=== PATIENT | male | born 1950 | race Caucasian/White ===

== ENCOUNTER 2016-12-28 16:25 | Emergency (ER) | payer MEDICAID ==
[~2016-12-28] VITALS: Ht 172.7 cm; Wt 95.0 kg
[2016-12-28 19:20] LABS: BASOPHILS % 1.2 % (0.0-2.0); EOSINOPHILS % 0.8 % (0.0-5.0); HEMATOCRIT. 42.3 % (36.0-48.0); HEMOGLOBIN. 14.1 g/dL (12.0-16.0); MEAN CORPUSCULAR HEMOGLOBIN 30.9 pg (28.0-32.0); MEAN CORPUSCULAR VOLUME 92.8 fL (81.0-99.0); MEAN PLATELET VOLUME 9.8 fl (7.4-10.4); MONOCYTES % 7.4 % (2.0-8.0); NEUTROPHILS % 64.6 % (40.0-76.0); PLATELET 228 x1000/uL (130-400); RED BLOOD CELL COUNT 4.56 mill/uL (4.2-5.4)
[2016-12-28 19:28] LABS: PROTHROMBIN TIME 10.7 sec (9.4-11.6)
[2016-12-28 19:37] LABS: CARBON DIOXIDE 27 mEq/L (21-32); CHLORIDE 105 mEq/L (98-107); ETHANOL BLOOD < 10 mg/dL
[2016-12-28 20:20] LABS: CLARITY URINE CLOUDY (CLEAR); COLOR URINE DARK YELLOW (YELLOW); GLUCOSE URINE NEGATIVE (NEGATIVE); KETONES URINE TRACE (NEGATIVE); LEUKOCYTE ESTERASE URINE 2+ (NEGATIVE); NITRITE URINE NEGATIVE (NEGATIVE); OCCULT BLOOD URINE NEGATIVE (NEGATIVE); PROTEIN URINE 1+ (NEGATIVE); SPECIFIC GRAVITY URINE 1.033 (1.005-1.030)
[2016-12-28 20:35] LABS: *AMPHETAMINES SCREEN URINE PRESUMTIVE POSITIVE (NEGATIVE); *BARBITURATES SCREEN URINE NEGATIVE (NEGATIVE); *BENZODIAZEPINES SCREEN URINE NEGATIVE (NEGATIVE); *COCAINE SCREEN URINE NEGATIVE (NEGATIVE); CANNABINOID URINE SCREEN NEGATIVE (NEGATIVE); METHADONE URINE SCREEN NEGATIVE (NEGATIVE); OPIATES URINE SCREEN NEGATIVE (NEGATIVE); PHENCYCLIDINE URINE SCREEN NEGATIVE (NEGATIVE)
[2016-12-28] MEDS ORDERED: IBUPROFEN 600MG TABLET PO ONE (23:30)
[2016-12-28 23:53] VITALS: BP 160/99
== END 2016-12-28 23:30 | disposition home or self-care (01) ==
LOC: EDSEX 16:34 → ER 16:34
DX: B35.4 Tinea corporis (principal); F15.10 Other stimulant abuse, uncomplicated; N39.0 Urinary tract infection, site not specified; F17.200 Nicotine dependence, unspecified, uncomplicated
CPT/HCPCS: 36415; 80053; 80305; 81001; 83690; 85025; 85610; 93970; 99285; G0482

== ENCOUNTER 2016-12-29 03:23 | Emergency (ER) | payer MEDICAID ==
[~2016-12-29] VITALS: Ht 172.7 cm; Wt 75.0 kg
[2016-12-29] MEDS ORDERED: ONDANSETRON HCL 4MG/2ML VIAL IV STA (07:16)
[2016-12-29] MEDS ORDERED: SODIUM CHLORIDE 0.9% 1,000 ML IV ONE (07:16)
[2016-12-29 08:00] LABS: BASOPHILS % 0.7 % (0.0-2.0); EOSINOPHILS % 0.9 % (0.0-5.0); HEMATOCRIT. 37.4 % (42.0-52.0); HEMOGLOBIN. 12.5 g/dL (14.0-18.0); LYMPHOCYTES % 21.9 % (20.0-50.0); MEAN CORPUSCULAR HEMOGLOBIN 30.8 pg (28.0-32.0); MEAN PLATELET VOLUME 9.8 fl (7.4-10.4); NEUTROPHILS % 66.5 % (40.0-76.0); PLATELET 217 x1000/uL (130-400); RED BLOOD CELL COUNT 4.07 mill/uL (4.7-6.1); RED CELL DISTRIBUTION WIDTH 13.9 % (11.6-14.6)
[2016-12-29 08:05] LABS: CLARITY URINE CLOUDY (CLEAR); COLOR URINE DARK YELLOW (YELLOW); GLUCOSE URINE NEGATIVE (NEGATIVE); KETONES URINE TRACE (NEGATIVE); LEUKOCYTE ESTERASE URINE 3+ (NEGATIVE); NITRITE URINE NEGATIVE (NEGATIVE); OCCULT BLOOD URINE NEGATIVE (NEGATIVE); PH URINE 5.5 (4.5-8.0); PROTEIN URINE 1+ (NEGATIVE); SPECIFIC GRAVITY URINE 1.029 (1.005-1.030)
[2016-12-29 08:13] LABS: CARBON DIOXIDE 30 mEq/L (21-32); CHLORIDE 106 mEq/L (98-107); ETHANOL BLOOD < 10 mg/dL
[2016-12-29 08:36] LABS: *AMPHETAMINES SCREEN URINE PRESUMTIVE POSITIVE (NEGATIVE); *BARBITURATES SCREEN URINE NEGATIVE (NEGATIVE); *BENZODIAZEPINES SCREEN URINE NEGATIVE (NEGATIVE); *COCAINE SCREEN URINE NEGATIVE (NEGATIVE); CANNABINOID URINE SCREEN NEGATIVE (NEGATIVE); METHADONE URINE SCREEN NEGATIVE (NEGATIVE); OPIATES URINE SCREEN NEGATIVE (NEGATIVE); PHENCYCLIDINE URINE SCREEN NEGATIVE (NEGATIVE)
[2016-12-29] MEDS ORDERED: CEFTRIAXONE 1 G PREMIX 50 ML IV ONE (09:15)
[2016-12-29 10:27] VITALS: BP 130/82
== END 2016-12-29 10:29 | disposition home or self-care (01) ==
LOC: ER 07:34
DX: N39.0 Urinary tract infection, site not specified (principal); S80.812A Abrasion, left lower leg, initial encounter; S80.811A Abrasion, right lower leg, initial encounter; F15.10 Other stimulant abuse, uncomplicated; F17.200 Nicotine dependence, unspecified, uncomplicated; X58.XXXA Exposure to other specified factors, initial encounter; Y93.89 Activity, other specified; Y92.89 Other specified places as the place of occurrence of the external cause; Y99.8 Other external cause status
CPT/HCPCS: 36415; 80053; 80305; 81001; 83690; 85025; 96365; 96375; 99284; G0482; J0696; J2405; J7030; Z7610

== ENCOUNTER 2017-01-18 08:23 | Emergency (ER) | payer MEDICAID ==
[~2017-01-18] VITALS: Ht 172.7 cm; Wt 95.0 kg
[2017-01-18 09:29] LABS: BASOPHILS % 0.6 % (0.0-2.0); EOSINOPHILS % 0.2 % (0.0-5.0); HEMATOCRIT. 44.6 % (42.0-52.0); HEMOGLOBIN. 15.2 g/dL (14.0-18.0); LYMPHOCYTES % 14.8 % (20.0-50.0); MEAN CORPUSCULAR HEMOGLOBIN 30.9 pg (28.0-32.0); MEAN CORPUSCULAR VOLUME 90.7 fL (80.0-94.0); MEAN PLATELET VOLUME 9.7 fl (7.4-10.4); MONOCYTES % 8.6 % (2.0-8.0); NEUTROPHILS % 75.8 % (40.0-76.0); PLATELET 251 x1000/uL (130-400); RED BLOOD CELL COUNT 4.91 mill/uL (4.7-6.1); RED CELL DISTRIBUTION WIDTH 13.7 % (11.6-14.6)
[2017-01-18 09:41] LABS: PARTIAL THROMBOPLASTIN TIME 26.5 sec (23.4-31.0); PROTHROMBIN TIME 10.3 sec (9.4-11.6)
[2017-01-18 09:42] LABS: CARBON DIOXIDE 30 mEq/L (21-32); CHLORIDE 101 mEq/L (98-107); TROPONIN I 0.09 ng/mL (0.00-0.04)
[2017-01-18] MEDS ORDERED: POTASSIUM CHLORIDE 20MEQ TABLET SR PO ONE ×2 (10:00→10:14)
[2017-01-18 10:37] LABS: GLUCOSE URINE NEGATIVE (NEGATIVE); KETONES URINE NEGATIVE (NEGATIVE); LEUKOCYTE ESTERASE URINE TRACE (NEGATIVE); NITRITE URINE NEGATIVE (NEGATIVE); OCCULT BLOOD URINE TRACE (NEGATIVE); PH URINE 6.5 (4.5-8.0); PROTEIN URINE 1+ (NEGATIVE); SPECIFIC GRAVITY URINE 1.011 (1.005-1.030); UROBILINOGEN URINE 0.2 E.U./dL (0.2-1.0)
[2017-01-18 10:38] LABS: COLOR URINE YELLOW (YELLOW)
[2017-01-18 10:39] LABS: CLARITY URINE CLEAR (CLEAR)
[2017-01-18 12:27] VITALS: BP 170/116
[2017-01-18] MEDS ORDERED: LISINOPRIL 20MG TABLET PO ONE (12:45)
== END 2017-01-18 13:37 | disposition home or self-care (01) ==
LOC: ER 11:52
DX: N39.0 Urinary tract infection, site not specified (principal); I87.2 Venous insufficiency (chronic) (peripheral); F17.290 Nicotine dependence, other tobacco product, uncomplicated; I10 Essential (primary) hypertension
CPT/HCPCS: 36415; 71010; 80053; 81001; 83880; 84484; 85025; 85610; 85730; 87040; 87086; 93970; 99285; Z7610

== ENCOUNTER 2017-01-18 23:00 | Inpatient (IN) | payer MEDICAID ==
[~2017-01-18] VITALS: Ht 172.7 cm; Wt 93.4 kg
[2017-01-19] VITALS (7 sets, daily range): BP systolic 116–139; BP diastolic 65–118
[2017-01-19] MEDS ORDERED: ASPIRIN 81MG TABLET PO ONE (00:15)
[2017-01-19 00:57] LABS: BASOPHILS % 0.7 % (0.0-2.0); EOSINOPHILS % 0.6 % (0.0-5.0); HEMATOCRIT. 42.7 % (42.0-52.0); HEMOGLOBIN. 14.7 g/dL (14.0-18.0); LYMPHOCYTES % 23.1 % (20.0-50.0); MEAN CORPUSCULAR HEMOGLOBIN 31.5 pg (28.0-32.0); MEAN CORPUSCULAR VOLUME 91.2 fL (80.0-94.0); MEAN PLATELET VOLUME 9.5 fl (7.4-10.4); MONOCYTES % 9.5 % (2.0-8.0); NEUTROPHILS % 66.1 % (40.0-76.0); PLATELET 222 x1000/uL (130-400); RED BLOOD CELL COUNT 4.68 mill/uL (4.7-6.1); RED CELL DISTRIBUTION WIDTH 14.1 % (11.6-14.6)
[2017-01-19 00:59] LABS: PROTHROMBIN TIME 10.7 sec (9.4-11.6)
[2017-01-19 01:06] LABS: CARBON DIOXIDE 27 mEq/L (21-32); CHLORIDE 105 mEq/L (98-107); ETHANOL BLOOD < 10 mg/dL; TROPONIN I 0.07 ng/mL (0.00-0.04)
[2017-01-19 03:55] LABS: *AMPHETAMINES SCREEN URINE PRESUMTIVE POSITIVE (NEGATIVE); *BARBITURATES SCREEN URINE NEGATIVE (NEGATIVE); *BENZODIAZEPINES SCREEN URINE NEGATIVE (NEGATIVE); *COCAINE SCREEN URINE NEGATIVE (NEGATIVE); CANNABINOID URINE SCREEN NEGATIVE (NEGATIVE); METHADONE URINE SCREEN NEGATIVE (NEGATIVE); OPIATES URINE SCREEN NEGATIVE (NEGATIVE); PHENCYCLIDINE URINE SCREEN NEGATIVE (NEGATIVE)
[2017-01-19] MEDS ORDERED: ONDANSETRON HCL 4MG/2ML VIAL IV PRN (09:45)
[2017-01-19] MEDS ORDERED: DIPHENHYDRAMINE 50MG/ML VIAL IV PRN (09:45)
[2017-01-19] MEDS ORDERED: ACETAMINOPHEN 325MG TABLET PO PRN (09:45)
[2017-01-19] MEDS ORDERED: KETOROLAC 30MG/ML VIAL IV PRN (09:45)
[2017-01-19] MEDS ORDERED: IPRATROPIUM/ALBUTEROL 0.5-3(2.5)MG/3ML NEB INH PRN (09:45)
[2017-01-19] MEDS ORDERED: GUAIFENESIN 200MG/10ML SUGAR FREE UDC PO PRN (09:45)
[2017-01-19] MEDS ORDERED: NA PHOS,M-B/NA PHOS,DI-BA ENEMA 118ML PR PRN (09:45)
[2017-01-19] MEDS ORDERED: MAGNESIUM/ALUMINUM HYDROXIDE/SIMETHICONE 30ML UDC PO PRN (09:45)
[2017-01-19] MEDS ORDERED: CLONIDINE 0.1MG TABLET PO PRN (09:45)
[2017-01-19] MEDS ORDERED: DOCUSATE SODIUM 100MG CAPSULE PO PRN (09:45)
[2017-01-19] MEDS ORDERED: LORAZEPAM 2MG/ML CPJ IV PRN (09:45)
[2017-01-19] MEDS ORDERED: KETOROLAC 15MG/ML VIAL IV PRN (10:11)
[2017-01-19] MEDS: ENOXAPARIN 40MG/0.4ML SYR SUBCUT SCH ×2 (11:20→21:02)
[2017-01-19] MEDS ORDERED: POTASSIUM CHLORIDE 20MEQ TABLET SR PO SCH (13:15)
[2017-01-19 17:21] LABS: CREATINE KINASE MB FRACTION 9.7 ng/mL (0.5-3.6); TROPONIN I 0.05 ng/mL (0.00-0.04)
[2017-01-19] MEDS ORDERED: ZOLPIDEM TARTRATE 5MG TABLET PO PRN (21:00)
[2017-01-20 00:55] LABS: CREATINE KINASE MB FRACTION 6.8 ng/mL (0.5-3.6); TROPONIN I 0.04 ng/mL (0.00-0.04)
[2017-01-20 03:57] VITALS: BP 130/77
[2017-01-20 08:00] VITALS: BP 110/84
[2017-01-20] MEDS ORDERED: ASPIRIN 325MG EC TABLET PO SCH (09:00)
[2017-01-20] MEDS ORDERED: PANTOPRAZOLE SODIUM 40 MG/VIAL IV SCH (09:00)
[2017-01-20] MEDS: ENOXAPARIN 40MG/0.4ML SYR SUBCUT SCH (09:11)
[2017-01-20 12:00] VITALS: BP 118/86
[2017-01-20 12:50] VITALS: BP 118/86
[2017-01-20] MEDS ORDERED: ENOXAPARIN 30MG/0.3ML SYR SUBCUT SCH (21:00)
== END 2017-01-20 13:34 | disposition home or self-care (01) | DRG 812 ==
LOC: ER 23:00 → 5WST 01-19 04:32 → ENRESERV 01-19 05:04
PROVIDERS: ADMIT Internal Medicine; ATTEND Internal Medicine
DX: T43.621A Poisoning by amphetamines, accidental (unintentional), initial encounter (principal); E87.6 Hypokalemia; F17.210 Nicotine dependence, cigarettes, uncomplicated; I73.9 Peripheral vascular disease, unspecified; Y92.89 Other specified places as the place of occurrence of the external cause
CPT/HCPCS: 36415; 71010; 80053; 80061; 80305; 82550; 82553; 83036; 83690; 83880; 84484; 85025; 85610; 93005; 99285; C9113; G0482; J1650

== ENCOUNTER 2017-02-07 19:29 | Emergency (ER) | payer MEDICAID ==
[~2017-02-07] VITALS: Ht 172.7 cm; Wt 95.0 kg
[2017-02-07] MEDS ORDERED: ASPIRIN 81MG TABLET PO ONE (20:00)
[2017-02-07] MEDS: NITROGLYCERIN 0.4MG TABLET SL SL PRN ×2 (21:01→21:09)
[2017-02-07 21:07] LABS: BASOPHILS % 0.6 % (0.0-2.0); EOSINOPHILS % 1.4 % (0.0-5.0); HEMATOCRIT. 41.1 % (42.0-52.0); HEMOGLOBIN. 14.1 g/dL (14.0-18.0); LYMPHOCYTES % 26.1 % (20.0-50.0); MEAN CORPUSCULAR HEMOGLOBIN 31.3 pg (28.0-32.0); MEAN CORPUSCULAR VOLUME 91.1 fL (80.0-94.0); MEAN PLATELET VOLUME 9.8 fl (7.4-10.4); MONOCYTES % 7.8 % (2.0-8.0); NEUTROPHILS % 64.1 % (40.0-76.0); PLATELET 211 x1000/uL (130-400); RED BLOOD CELL COUNT 4.51 mill/uL (4.7-6.1); RED CELL DISTRIBUTION WIDTH 13.8 % (11.6-14.6)
[2017-02-07 21:12] LABS: CHLORIDE 107 mEq/L (98-107)
[2017-02-07 21:21] LABS: CARBON DIOXIDE 31 mEq/L (21-32); ETHANOL BLOOD < 10 mg/dL; TROPONIN I 0.03 ng/mL (0.00-0.04)
[2017-02-08 00:12] VITALS: BP 146/75
== END 2017-02-08 00:13 | disposition home or self-care (01) ==
LOC: ER 20:02
DX: R07.9 Chest pain, unspecified (principal); R06.02 Shortness of breath; I10 Essential (primary) hypertension; H54.61 Unqualified visual loss, right eye, normal vision left eye; F17.200 Nicotine dependence, unspecified, uncomplicated; F14.10 Cocaine abuse, uncomplicated
CPT/HCPCS: 36415; 71010; 80053; 83880; 84484; 85025; 85610; 93005; 99285; G0482; Z7610

== ENCOUNTER 2017-03-10 22:27 | Emergency (ER) | payer MEDICAID ==
[~2017-03-10] VITALS: Ht 172.7 cm; Wt 95.0 kg
[2017-03-11 04:42] LABS: BASOPHILS % 0.5 % (0.0-2.0); EOSINOPHILS % 0.4 % (0.0-5.0); HEMOGLOBIN. 14.1 g/dL (14.0-18.0); LYMPHOCYTES % 18.8 % (20.0-50.0); MEAN CORPUSCULAR HEMOGLOBIN 31.3 pg (28.0-32.0); MEAN PLATELET VOLUME 9.9 fl (7.4-10.4); MONOCYTES % 8.2 % (2.0-8.0); NEUTROPHILS % 72.1 % (40.0-76.0); PLATELET 235 x1000/uL (130-400); RED BLOOD CELL COUNT 4.51 mill/uL (4.7-6.1)
[2017-03-11 04:46] LABS: CARBON DIOXIDE 32 mEq/L (21-32); TROPONIN I < 0.02 ng/mL (0.00-0.04)
[2017-03-11 05:00] LABS: CHLORIDE 101 mEq/L (98-107)
[2017-03-11 06:58] VITALS: BP 180/98
== END 2017-03-11 06:59 | disposition home or self-care (01) ==
LOC: ER 22:27
DX: I10 Essential (primary) hypertension (principal); R42 Dizziness and giddiness; F17.210 Nicotine dependence, cigarettes, uncomplicated; F15.10 Other stimulant abuse, uncomplicated; F14.90 Cocaine use, unspecified, uncomplicated; H54.61 Unqualified visual loss, right eye, normal vision left eye
CPT/HCPCS: 36415; 71010; 80053; 84484; 85025; 93005; 99285; Z7610

== ENCOUNTER 2017-03-11 23:58 | Emergency (ER) | payer MEDICAID ==
[~2017-03-11] VITALS: Ht 172.7 cm; Wt 96.0 kg
[2017-03-12 00:12] VITALS: BP 141/99
== END 2017-03-12 02:15 | disposition left against medical advice (07) ==
LOC: ER 23:58
DX: R42 Dizziness and giddiness (principal); Z53.21 Procedure and treatment not carried out due to patient leaving prior to being seen by health care provider
CPT/HCPCS: 93005

== ENCOUNTER 2017-03-16 07:53 | Emergency (ER) | payer MEDICAID ==
[~2017-03-16] VITALS: Ht 175.3 cm; Wt 95.0 kg
[2017-03-16 08:54] LABS: BASOPHILS % 0.6 % (0.0-2.0); EOSINOPHILS % 0.3 % (0.0-5.0); HEMATOCRIT. 41.6 % (42.0-52.0); HEMOGLOBIN. 14.4 g/dL (14.0-18.0); LYMPHOCYTES % 14.1 % (20.0-50.0); MEAN CORPUSCULAR HEMOGLOBIN 31.4 pg (28.0-32.0); MEAN CORPUSCULAR VOLUME 90.7 fL (80.0-94.0); MEAN PLATELET VOLUME 9.6 fl (7.4-10.4); PLATELET 238 x1000/uL (130-400); RED BLOOD CELL COUNT 4.59 mill/uL (4.7-6.1); RED CELL DISTRIBUTION WIDTH 13.7 % (11.6-14.6)
[2017-03-16 08:57] LABS: PROTHROMBIN TIME 10.5 sec (9.4-11.6)
[2017-03-16 09:06] LABS: CARBON DIOXIDE 28 mEq/L (21-32); CHLORIDE 102 mEq/L (98-107); TROPONIN I 0.03 ng/mL (0.00-0.04)
[2017-03-16] MEDS ORDERED: NITROGLYCERIN 0.4MG TABLET SL SL PRN (09:15)
[2017-03-16 11:34] LABS: *AMPHETAMINES SCREEN URINE PRESUMTIVE POSITIVE (NEGATIVE); *BARBITURATES SCREEN URINE NEGATIVE (NEGATIVE); *BENZODIAZEPINES SCREEN URINE NEGATIVE (NEGATIVE); *COCAINE SCREEN URINE NEGATIVE (NEGATIVE); CANNABINOID URINE SCREEN NEGATIVE (NEGATIVE); METHADONE URINE SCREEN NEGATIVE (NEGATIVE); OPIATES URINE SCREEN NEGATIVE (NEGATIVE); PHENCYCLIDINE URINE SCREEN NEGATIVE (NEGATIVE)
[2017-03-16] MEDS ORDERED: POTASSIUM CHLORIDE 20MEQ TABLET SR PO ONE (12:45)
[2017-03-16] MEDS ORDERED: FUROSEMIDE 20MG/2ML VIAL IVP ONE (13:45)
[2017-03-16 15:09] VITALS: BP 184/128
== END 2017-03-16 15:13 | disposition home or self-care (01) ==
LOC: ER 09:59 → CANBEDREQ 15:51
DX: R07.2 Precordial pain (principal); F14.10 Cocaine abuse, uncomplicated; F15.10 Other stimulant abuse, uncomplicated; R60.0 Localized edema; E78.00 Pure hypercholesterolemia, unspecified; I10 Essential (primary) hypertension; F17.200 Nicotine dependence, unspecified, uncomplicated; Z98.890 Other specified postprocedural states
CPT/HCPCS: 36415; 71010; 80053; 80305; 83735; 83880; 84484; 85025; 85610; 93005; 96374; 99285; G0482; J1940

== ENCOUNTER 2017-03-17 22:50 | Emergency (ER) | payer MEDICAID ==
[~2017-03-17] VITALS: Ht 172.7 cm; Wt 95.0 kg
[2017-03-18] MEDS ORDERED: ACETAMINOPHEN 325MG TABLET PO STA (01:16)
[2017-03-18 01:43] LABS: BASOPHILS % 0.4 % (0.0-2.0); EOSINOPHILS % 0.6 % (0.0-5.0); HEMATOCRIT. 40.2 % (42.0-52.0); HEMOGLOBIN. 13.4 g/dL (14.0-18.0); LYMPHOCYTES % 16.5 % (20.0-50.0); MEAN CORPUSCULAR HEMOGLOBIN 30.4 pg (28.0-32.0); MEAN CORPUSCULAR VOLUME 91.3 fL (80.0-94.0); MEAN PLATELET VOLUME 9.5 fl (7.4-10.4); MONOCYTES % 8.6 % (2.0-8.0); NEUTROPHILS % 73.9 % (40.0-76.0); PLATELET 264 x1000/uL (130-400)
[2017-03-18 01:51] LABS: CHLORIDE 103 mEq/L (98-107)
[2017-03-18 02:02] LABS: CARBON DIOXIDE 30 mEq/L (21-32)
[2017-03-18 03:29] VITALS: BP 137/88
== END 2017-03-18 03:37 | disposition home or self-care (01) ==
LOC: ER 23:07
DX: R60.0 Localized edema (principal); L40.9 Psoriasis, unspecified; G89.29 Other chronic pain; I10 Essential (primary) hypertension; E78.00 Pure hypercholesterolemia, unspecified; F17.210 Nicotine dependence, cigarettes, uncomplicated; F14.10 Cocaine abuse, uncomplicated; Z90.49 Acquired absence of other specified parts of digestive tract; Z87.828 Personal history of other (healed) physical injury and trauma
CPT/HCPCS: 36415; 71010; 80053; 83880; 85025; 93005; 93970; 99285; Z7610

== ENCOUNTER 2017-03-24 11:24 | Emergency (ER) | payer MEDICAID ==
[~2017-03-24] VITALS: Ht 172.7 cm; Wt 98.0 kg
[2017-03-24 12:04] VITALS: BP 176/107
== END 2017-03-24 18:52 | disposition left against medical advice (07) ==
LOC: ER 11:59
DX: R07.89 Other chest pain (principal); Z53.21 Procedure and treatment not carried out due to patient leaving prior to being seen by health care provider

== ENCOUNTER 2017-03-27 14:44 | Emergency (ER) | payer MEDICAID ==
[~2017-03-27] VITALS: Ht 177.8 cm; Wt 95.0 kg
[2017-03-27 15:05] VITALS: BP 186/128
== END 2017-03-27 16:40 | disposition left against medical advice (07) ==
LOC: ER 14:44
DX: R42 Dizziness and giddiness (principal); Z53.21 Procedure and treatment not carried out due to patient leaving prior to being seen by health care provider

== ENCOUNTER 2017-03-29 22:01 | Emergency (ER) | payer MEDICAID ==
[~2017-03-29] VITALS: Ht 172.7 cm; Wt 101.0 kg
[2017-03-29] MEDS ORDERED: CLONIDINE 0.1MG TABLET PO ONE (23:45)
[2017-03-30 00:05] VITALS: BP 157/84
== END 2017-03-30 00:15 | disposition home or self-care (01) ==
LOC: ER 22:40
DX: I10 Essential (primary) hypertension (principal); F15.10 Other stimulant abuse, uncomplicated; F12.10 Cannabis abuse, uncomplicated; F14.10 Cocaine abuse, uncomplicated
CPT/HCPCS: 99282

== ENCOUNTER 2017-03-31 16:45 | Emergency (ER) | payer MEDICAID ==
[~2017-03-31] VITALS: Ht 172.7 cm; Wt 91.0 kg
[2017-03-31 18:56] LABS: BASOPHILS % 0.4 % (0.0-2.0); EOSINOPHILS % 0.5 % (0.0-5.0); HEMATOCRIT. 41.5 % (42.0-52.0); HEMOGLOBIN. 13.9 g/dL (14.0-18.0); MEAN CORPUSCULAR HEMOGLOBIN 30.8 pg (28.0-32.0); MEAN CORPUSCULAR VOLUME 91.8 fL (80.0-94.0); MEAN PLATELET VOLUME 9.9 fl (7.4-10.4); MONOCYTES % 7.4 % (2.0-8.0); NEUTROPHILS % 77.7 % (40.0-76.0); PLATELET 288 x1000/uL (130-400); RED BLOOD CELL COUNT 4.52 mill/uL (4.7-6.1); RED CELL DISTRIBUTION WIDTH 13.3 % (11.6-14.6)
[2017-03-31 19:05] LABS: PARTIAL THROMBOPLASTIN TIME 27.7 sec (23.4-31.0); PROTHROMBIN TIME 10.2 sec (9.4-11.6)
[2017-03-31 19:08] LABS: CARBON DIOXIDE 28 mEq/L (21-32); CHLORIDE 101 mEq/L (98-107)
[2017-03-31 19:13] LABS: TROPONIN I 0.03 ng/mL (0.00-0.04)
[2017-03-31 19:40] VITALS: BP 188/82
[2017-03-31] MEDS ORDERED: CLONIDINE 0.1MG TABLET ONE (21:36)
[2017-03-31] MEDS ORDERED: CLONIDINE 0.1MG TABLET PO ONE (22:30)
== END 2017-03-31 19:50 | disposition home or self-care (01) ==
LOC: ER 17:42
DX: R07.9 Chest pain, unspecified (principal); I11.0 Hypertensive heart disease with heart failure; I50.9 Heart failure, unspecified; F14.10 Cocaine abuse, uncomplicated; F12.10 Cannabis abuse, uncomplicated; F15.10 Other stimulant abuse, uncomplicated; Z90.49 Acquired absence of other specified parts of digestive tract
CPT/HCPCS: 36415; 80053; 83690; 84484; 85025; 85610; 85730; 93005; 99285

== ENCOUNTER 2017-04-01 07:48 | Emergency (ER) | payer MEDICAID ==
[~2017-04-01] VITALS: Ht 172.7 cm; Wt 100.0 kg
[2017-04-01] MEDS ORDERED: SODIUM CHLORIDE 0.9% 1,000 ML IV ONE (12:52)
[2017-04-01 13:11] LABS: EOSINOPHILS % 0.6 % (0.0-5.0); HEMATOCRIT. 41.1 % (42.0-52.0); HEMOGLOBIN. 13.8 g/dL (14.0-18.0); LYMPHOCYTES % 20.5 % (20.0-50.0); MEAN CORPUSCULAR HEMOGLOBIN 30.7 pg (28.0-32.0); MEAN CORPUSCULAR VOLUME 91.4 fL (80.0-94.0); MEAN PLATELET VOLUME 9.9 fl (7.4-10.4); MONOCYTES % 9.5 % (2.0-8.0); NEUTROPHILS % 68.4 % (40.0-76.0); PLATELET 269 x1000/uL (130-400); RED CELL DISTRIBUTION WIDTH 13.4 % (11.6-14.6)
[2017-04-01 13:32] LABS: CARBON DIOXIDE 28 mEq/L (21-32); CHLORIDE 101 mEq/L (98-107); ETHANOL BLOOD < 10 mg/dL
[2017-04-01 14:36] LABS: CLARITY URINE CLEAR (CLEAR); COLOR URINE YELLOW (YELLOW); KETONES URINE 1+ (NEGATIVE); LEUKOCYTE ESTERASE URINE TRACE (NEGATIVE); NITRITE URINE NEGATIVE (NEGATIVE); OCCULT BLOOD URINE NEGATIVE (NEGATIVE); PH URINE 5.5 (4.5-8.0); PROTEIN URINE NEGATIVE (NEGATIVE); SPECIFIC GRAVITY URINE 1.014 (1.005-1.030)
[2017-04-01 15:15] LABS: *AMPHETAMINES SCREEN URINE PRESUMTIVE POSITIVE (NEGATIVE); *BARBITURATES SCREEN URINE NEGATIVE (NEGATIVE); *BENZODIAZEPINES SCREEN URINE NEGATIVE (NEGATIVE); *COCAINE SCREEN URINE NEGATIVE (NEGATIVE); CANNABINOID URINE SCREEN NEGATIVE (NEGATIVE); METHADONE URINE SCREEN NEGATIVE (NEGATIVE); OPIATES URINE SCREEN NEGATIVE (NEGATIVE); PHENCYCLIDINE URINE SCREEN NEGATIVE (NEGATIVE)
[2017-04-01 16:05] VITALS: BP 181/89
== END 2017-04-01 16:15 | disposition home or self-care (01) ==
LOC: ER 08:29
DX: F15.10 Other stimulant abuse, uncomplicated (principal); F17.210 Nicotine dependence, cigarettes, uncomplicated; F12.10 Cannabis abuse, uncomplicated; I10 Essential (primary) hypertension; Z90.49 Acquired absence of other specified parts of digestive tract; Z98.890 Other specified postprocedural states
CPT/HCPCS: 36415; 80053; 80305; 81001; 85025; 96360; 96361; 99285; G0482; J7030; Z7610

== ENCOUNTER 2017-04-04 21:53 | Emergency (ER) | payer MEDICAID ==
[~2017-04-04] VITALS: Ht 172.7 cm; Wt 90.9 kg
[2017-04-05] MEDS ORDERED: ACETAMINOPHEN 325MG TABLET PO ONE (06:30)
[2017-04-05] MEDS ORDERED: CLONIDINE 0.2MG TABLET PO ONE (06:30)
[2017-04-05] MEDS ORDERED: TRAMADOL 50MG TABLET PO ONE (08:00)
[2017-04-05 09:24] VITALS: BP 134/97
== END 2017-04-05 09:28 | disposition home or self-care (01) ==
LOC: ER 22:46
DX: S80.211A Abrasion, right knee, initial encounter (principal); I10 Essential (primary) hypertension; M79.641 Pain in right hand; F17.200 Nicotine dependence, unspecified, uncomplicated; F14.10 Cocaine abuse, uncomplicated; F15.10 Other stimulant abuse, uncomplicated; Z98.890 Other specified postprocedural states; W08.XXXA Fall from other furniture, initial encounter; Y93.89 Activity, other specified; Y92.89 Other specified places as the place of occurrence of the external cause; Y99.8 Other external cause status
CPT/HCPCS: 73130; 73562; 99284; Z7610

== ENCOUNTER 2017-04-06 03:32 | Emergency (ER) | payer MEDICAID ==
[~2017-04-06] VITALS: Ht 172.7 cm; Wt 91.0 kg
[2017-04-06 03:38] VITALS: BP 160/102
== END 2017-04-06 06:41 | disposition left against medical advice (07) ==
LOC: ER 03:32
DX: M79.642 Pain in left hand (principal); M79.89 Other specified soft tissue disorders; Z53.21 Procedure and treatment not carried out due to patient leaving prior to being seen by health care provider

== ENCOUNTER 2017-04-07 02:17 | Emergency (ER) | payer MEDICAID ==
[~2017-04-07] VITALS: Ht 172.7 cm; Wt 91.0 kg
[2017-04-07 02:42] VITALS: BP 221/110
== END 2017-04-07 08:14 | disposition left against medical advice (07) ==
LOC: ER 02:17
DX: M79.89 Other specified soft tissue disorders (principal); Z53.21 Procedure and treatment not carried out due to patient leaving prior to being seen by health care provider

== ENCOUNTER 2017-04-07 14:49 | Emergency (ER) | payer MEDICAID ==
[~2017-04-07] VITALS: Ht 172.7 cm; Wt 91.0 kg
[2017-04-07] MEDS ORDERED: IBUPROFEN 600MG TABLET PO ONE (17:15)
[2017-04-07 18:23] VITALS: BP 162/97
== END 2017-04-07 18:26 | disposition home or self-care (01) ==
LOC: ER 14:49
DX: B35.3 Tinea pedis (principal); B35.1 Tinea unguium; M79.672 Pain in left foot; M79.642 Pain in left hand; M79.671 Pain in right foot; E78.00 Pure hypercholesterolemia, unspecified; I10 Essential (primary) hypertension
CPT/HCPCS: 73130; 73630; 99284

== ENCOUNTER 2017-04-08 21:08 | Emergency (ER) | payer MEDICAID ==
[~2017-04-08] VITALS: Ht 172.7 cm; Wt 91.0 kg
[2017-04-09] MEDS ORDERED: ASPIRIN 325MG TABLET PO ONE
[2017-04-09] MEDS ORDERED: LOSARTAN POTASSIUM 25 MG TABLET PO ONE (00:15)
[2017-04-09] MEDS ORDERED: CLONIDINE 0.1MG TABLET PO ONE (00:15)
[2017-04-09] MEDS ORDERED: FUROSEMIDE 40MG TABLET PO ONE (00:15)
[2017-04-09 00:34] LABS: BASOPHILS % 0.6 % (0.0-2.0); EOSINOPHILS % 1.2 % (0.0-5.0); HEMATOCRIT. 39.9 % (42.0-52.0); HEMOGLOBIN. 13.2 g/dL (14.0-18.0); LYMPHOCYTES % 18.3 % (20.0-50.0); MEAN CORPUSCULAR HEMOGLOBIN 30.7 pg (28.0-32.0); MEAN CORPUSCULAR VOLUME 92.6 fL (80.0-94.0); MEAN PLATELET VOLUME 9.5 fl (7.4-10.4); MONOCYTES % 8.8 % (2.0-8.0); NEUTROPHILS % 71.1 % (40.0-76.0); PLATELET 291 x1000/uL (130-400); RED BLOOD CELL COUNT 4.31 mill/uL (4.7-6.1); RED CELL DISTRIBUTION WIDTH 13.6 % (11.6-14.6)
[2017-04-09 00:42] LABS: PARTIAL THROMBOPLASTIN TIME 27.9 sec (23.4-31.0); PROTHROMBIN TIME 10.3 sec (9.4-11.6)
[2017-04-09 01:22] LABS: CARBON DIOXIDE 29 mEq/L (21-32); CHLORIDE 105 mEq/L (98-107)
[2017-04-09 01:29] LABS: TROPONIN I 0.03 ng/mL (0.00-0.04)
[2017-04-09 04:13] VITALS: BP 165/89
== END 2017-04-09 04:15 | disposition home or self-care (01) ==
LOC: ER 21:08
DX: R07.89 Other chest pain (principal); R06.02 Shortness of breath; I10 Essential (primary) hypertension; E78.00 Pure hypercholesterolemia, unspecified; Z91.14 Patient's other noncompliance with medication regimen
CPT/HCPCS: 36415; 71045; 80053; 83690; 84484; 85025; 85610; 85730; 93005; 99285

== ENCOUNTER 2017-04-09 21:07 | Emergency (ER) | payer MEDICAID ==
[~2017-04-09] VITALS: Ht 172.7 cm; Wt 90.9 kg
[2017-04-09 22:00] VITALS: BP 153/98
== END 2017-04-10 06:45 | disposition left against medical advice (07) ==
LOC: ER 21:07
DX: R11.0 Nausea (principal); Z53.21 Procedure and treatment not carried out due to patient leaving prior to being seen by health care provider

== ENCOUNTER 2017-04-13 00:07 | Emergency (ER) | payer MEDICAID ==
[~2017-04-13] VITALS: Ht 172.7 cm; Wt 91.0 kg
[2017-04-13 00:42] VITALS: BP 156/101
== END 2017-04-13 09:32 | disposition left against medical advice (07) ==
LOC: ER 00:07
DX: M79.643 Pain in unspecified hand (principal); Z53.21 Procedure and treatment not carried out due to patient leaving prior to being seen by health care provider

== ENCOUNTER 2017-04-14 00:23 | Emergency (ER) | payer MEDICAID ==
[~2017-04-14] VITALS: Ht 172.7 cm; Wt 91.0 kg
[2017-04-14 03:29] VITALS: BP 149/99
== END 2017-04-14 07:19 | disposition home or self-care (01) ==
LOC: ER 00:23
DX: L03.114 Cellulitis of left upper limb (principal); I10 Essential (primary) hypertension; F17.200 Nicotine dependence, unspecified, uncomplicated
CPT/HCPCS: 99283

== ENCOUNTER 2017-04-14 23:36 | Emergency (ER) | payer MEDICAID ==
[~2017-04-14] VITALS: Ht 172.7 cm; Wt 91.0 kg
[2017-04-15 01:07] VITALS: BP 184/101
== END 2017-04-15 08:21 | disposition left against medical advice (07) ==
LOC: ER 23:36
DX: Z53.21 Procedure and treatment not carried out due to patient leaving prior to being seen by health care provider (principal)

== ENCOUNTER 2017-04-15 21:37 | Emergency (ER) | payer MEDICAID ==
[~2017-04-15] VITALS: Ht 172.7 cm; Wt 91.0 kg
[2017-04-15 22:43] VITALS: BP 149/108
[2017-04-16] MEDS ORDERED: IBUPROFEN 600MG TABLET PO ONE (00:30)
== END 2017-04-16 00:40 | disposition home or self-care (01) ==
LOC: ER 22:27
DX: M79.89 Other specified soft tissue disorders (principal); J44.9 Chronic obstructive pulmonary disease, unspecified; I10 Essential (primary) hypertension; F17.200 Nicotine dependence, unspecified, uncomplicated; F14.10 Cocaine abuse, uncomplicated; F15.10 Other stimulant abuse, uncomplicated; Z87.828 Personal history of other (healed) physical injury and trauma
CPT/HCPCS: 99282

== ENCOUNTER 2017-04-17 21:32 | Emergency (ER) | payer MEDICAID ==
[~2017-04-17] VITALS: Ht 172.7 cm; Wt 91.0 kg
[2017-04-18] MEDS ORDERED: FUROSEMIDE 40MG/4ML VIAL IV ONE (03:00)
[2017-04-18 03:15] LABS: BASOPHILS % 0.6 % (0.0-2.0); EOSINOPHILS % 1.4 % (0.0-5.0); HEMATOCRIT. 39.4 % (42.0-52.0); HEMOGLOBIN. 13.4 g/dL (14.0-18.0); LYMPHOCYTES % 21.1 % (20.0-50.0); MEAN CORPUSCULAR HEMOGLOBIN 31.2 pg (28.0-32.0); MEAN PLATELET VOLUME 9.7 fl (7.4-10.4); MONOCYTES % 8.8 % (2.0-8.0); NEUTROPHILS % 68.1 % (40.0-76.0); PLATELET 239 x1000/uL (130-400); RED BLOOD CELL COUNT 4.28 mill/uL (4.7-6.1); RED CELL DISTRIBUTION WIDTH 13.9 % (11.6-14.6)
[2017-04-18 03:49] LABS: TROPONIN I 0.03 ng/mL (0.00-0.04)
[2017-04-18 04:53] LABS: CHLORIDE 103 mEq/L (98-107)
[2017-04-18] MEDS ORDERED: POTASSIUM CHLORIDE 20MEQ TABLET SR PO ONE (05:00)
[2017-04-18] MEDS ORDERED: FUROSEMIDE 40MG TABLET PO ONE (05:00)
[2017-04-18 06:30] VITALS: BP 184/92
[2017-05-12] MEDS ORDERED: FURO40TA5 PO (16:36)
== END 2017-04-18 06:41 | disposition home or self-care (01) ==
LOC: ER 22:38
DX: I87.2 Venous insufficiency (chronic) (peripheral) (principal); I50.9 Heart failure, unspecified; I11.0 Hypertensive heart disease with heart failure; M79.89 Other specified soft tissue disorders; J44.9 Chronic obstructive pulmonary disease, unspecified; F14.10 Cocaine abuse, uncomplicated; F15.10 Other stimulant abuse, uncomplicated; Z87.440 Personal history of urinary (tract) infections; Z98.890 Other specified postprocedural states
CPT/HCPCS: 36415; 71045; 73130; 80053; 83880; 84484; 85025; 93005; 99285; Z7610

== ENCOUNTER 2017-04-19 23:55 | Emergency (ER) | payer MEDICAID ==
[~2017-04-19] VITALS: Ht 172.7 cm; Wt 91.0 kg
[2017-04-20 00:41] VITALS: BP 144/104
== END 2017-04-20 07:26 | disposition left against medical advice (07) ==
LOC: ER 23:55
DX: Z53.21 Procedure and treatment not carried out due to patient leaving prior to being seen by health care provider (principal)

== ENCOUNTER 2017-04-20 23:25 | Emergency (ER) | payer MEDICAID ==
[~2017-04-20] VITALS: Ht 172.7 cm; Wt 91.0 kg
[2017-04-21] MEDS ORDERED: FUROSEMIDE 40MG/4ML VIAL IV ONE (03:30)
[2017-04-21] MEDS ORDERED: LABETALOL HCL 20MG/4ML CARPUJECT IV ONE (03:30)
[2017-04-21] MEDS ORDERED: NITROGLYCERIN OINT 1GM/INCH UDPKT TD ONE (03:30)
[2017-04-21] MEDS ORDERED: ASPIRIN 81MG TABLET PO ONE (03:30)
[2017-04-21] MEDS ORDERED: LABETALOL 5MG/ML SYR 20 MG/4 ML SYRINGE IV SCH (03:45)
[2017-04-21 04:04] LABS: BASOPHILS % 0.9 % (0.0-2.0); EOSINOPHILS % 0.9 % (0.0-5.0); HEMATOCRIT. 39.5 % (42.0-52.0); HEMOGLOBIN. 13.1 g/dL (14.0-18.0); LYMPHOCYTES % 26.7 % (20.0-50.0); MEAN CORPUSCULAR HEMOGLOBIN 30.5 pg (28.0-32.0); MEAN CORPUSCULAR VOLUME 91.6 fL (80.0-94.0); MEAN PLATELET VOLUME 9.7 fl (7.4-10.4); MONOCYTES % 9.9 % (2.0-8.0); NEUTROPHILS % 61.6 % (40.0-76.0); PLATELET 242 x1000/uL (130-400); RED BLOOD CELL COUNT 4.31 mill/uL (4.7-6.1); RED CELL DISTRIBUTION WIDTH 13.8 % (11.6-14.6)
[2017-04-21 04:09] LABS: PROTHROMBIN TIME 10.7 sec (9.4-11.6)
[2017-04-21 04:12] LABS: CHLORIDE 104 mEq/L (98-107); ETHANOL BLOOD < 10 mg/dL; TROPONIN I 0.03 ng/mL (0.00-0.04)
[2017-04-21 04:48] LABS: CARBON DIOXIDE 29 mEq/L (21-32)
[2017-04-21 06:15] VITALS: BP 125/67
== END 2017-04-21 06:17 | disposition home or self-care (01) ==
LOC: ER 23:25 → EDBEDREQ 04-21 03:34 → ER 04-21 06:17 → CANBEDREQ 04-21 07:42
DX: M79.605 Pain in left leg (principal); M79.604 Pain in right leg; I11.0 Hypertensive heart disease with heart failure; I50.9 Heart failure, unspecified; F17.200 Nicotine dependence, unspecified, uncomplicated; F14.10 Cocaine abuse, uncomplicated; Z79.82 Long term (current) use of aspirin; Z91.14 Patient's other noncompliance with medication regimen; Z98.890 Other specified postprocedural states
CPT/HCPCS: 36415; 71045; 80053; 83880; 84484; 85025; 85610; 93005; 96374; 96375; 99285; G0482; J1940; J3490; Z7610

== ENCOUNTER 2017-04-25 22:57 | Emergency (ER) | payer MEDICAID ==
[~2017-04-25] VITALS: Ht 172.7 cm; Wt 91.0 kg
[2017-04-26 05:00] VITALS: BP 149/89
[2017-05-12] MEDS ORDERED: FURO40TA5 PO (16:36)
[2017-06-20] MEDS ORDERED: CLIN300C11 PO (14:35)
== END 2017-04-26 04:30 | disposition home or self-care (01) ==
LOC: ER 22:57
DX: R60.0 Localized edema (principal); I10 Essential (primary) hypertension; F17.200 Nicotine dependence, unspecified, uncomplicated; F14.10 Cocaine abuse, uncomplicated; Z98.890 Other specified postprocedural states
CPT/HCPCS: 99283

== ENCOUNTER 2017-04-27 03:21 | Emergency (ER) | payer MEDICAID ==
[~2017-04-27] VITALS: Ht 172.7 cm; Wt 91.0 kg
[2017-04-27 03:30] VITALS: BP 170/88
== END 2017-04-27 03:53 | disposition left against medical advice (07) ==
LOC: ER 03:27
DX: Z53.21 Procedure and treatment not carried out due to patient leaving prior to being seen by health care provider (principal)

== ENCOUNTER 2017-04-30 00:32 | Emergency (ER) | payer MEDICAID ==
[~2017-04-30] VITALS: Ht 172.7 cm; Wt 91.0 kg
[2017-04-30] MEDS ORDERED: FUROSEMIDE 40MG/4ML VIAL IVP ONE (01:00)
[2017-04-30] MEDS ORDERED: CLONIDINE 0.1MG TABLET PO ONE (01:00)
[2017-04-30 02:49] VITALS: BP 179/101
[2017-05-12] MEDS ORDERED: FURO40TA5 PO (16:36)
[2017-06-20] MEDS ORDERED: CLIN300C11 PO (14:35)
== END 2017-04-30 03:06 | disposition home or self-care (01) ==
LOC: ER 00:32
DX: S63.91XA Sprain of unspecified part of right wrist and hand, initial encounter (principal); I10 Essential (primary) hypertension; F17.200 Nicotine dependence, unspecified, uncomplicated; F12.10 Cannabis abuse, uncomplicated; F15.10 Other stimulant abuse, uncomplicated; Z91.14 Patient's other noncompliance with medication regimen; Z87.828 Personal history of other (healed) physical injury and trauma; Y04.0XXA Assault by unarmed brawl or fight, initial encounter; Y93.89 Activity, other specified; Y92.89 Other specified places as the place of occurrence of the external cause; Z59.0 Homelessness
CPT/HCPCS: 73130; 96374; 99284; J1940; Z7610

== ENCOUNTER 2017-05-04 01:28 | Emergency (ER) | payer MEDICAID ==
[~2017-05-04] VITALS: Ht 170.2 cm; Wt 77.0 kg
[2017-05-04 02:04] VITALS: BP 180/88
== END 2017-05-04 04:00 | disposition left against medical advice (07) ==
LOC: ER 01:28
DX: M25.511 Pain in right shoulder (principal); M25.512 Pain in left shoulder; Z53.21 Procedure and treatment not carried out due to patient leaving prior to being seen by health care provider

== ENCOUNTER 2017-05-04 15:34 | Emergency (ER) | payer MEDICAID ==
[~2017-05-04] VITALS: Ht 172.7 cm; Wt 75.0 kg
[2017-05-04] MEDS ORDERED: KETOROLAC 30MG/ML VIAL IM ONE (23:00)
[2017-05-04] MEDS ORDERED: ONDANSETRON 4MG ODT PO ONE (23:00)
[2017-05-04 23:45] VITALS: BP 122/68
[2017-05-12] MEDS ORDERED: FURO40TA5 PO (16:36)
[2017-06-20] MEDS ORDERED: CLIN300C11 PO (14:35)
== END 2017-05-05 00:05 | disposition home or self-care (01) ==
LOC: ER 16:20
DX: S46.911A Strain of unspecified muscle, fascia and tendon at shoulder and upper arm level, right arm, initial encounter (principal); S46.912A Strain of unspecified muscle, fascia and tendon at shoulder and upper arm level, left arm, initial encounter; I11.0 Hypertensive heart disease with heart failure; I50.9 Heart failure, unspecified; F15.10 Other stimulant abuse, uncomplicated; F17.200 Nicotine dependence, unspecified, uncomplicated; F12.10 Cannabis abuse, uncomplicated; X58.XXXA Exposure to other specified factors, initial encounter; Y93.B9 Activity, other involving muscle strengthening exercises; Y92.89 Other specified places as the place of occurrence of the external cause; Z59.0 Homelessness
CPT/HCPCS: 96372; 99283; J1885; Q0162

== ENCOUNTER 2017-05-05 07:22 | Emergency (ER) | payer MEDICAID ==
[~2017-05-05] VITALS: Ht 172.7 cm; Wt 91.0 kg
[2017-05-05 10:54] VITALS: BP 180/99
[2017-05-12] MEDS ORDERED: FURO40TA5 PO (16:36)
[2017-06-20] MEDS ORDERED: CLIN300C11 PO (14:35)
== END 2017-05-05 11:00 | disposition left against medical advice (07) ==
LOC: ER 07:31
DX: Z53.21 Procedure and treatment not carried out due to patient leaving prior to being seen by health care provider (principal); Z59.0 Homelessness

== ENCOUNTER 2017-05-06 01:32 | Emergency (ER) | payer MEDICAID ==
[~2017-05-06] VITALS: Ht 172.7 cm; Wt 92.1 kg
[2017-05-06 01:36] VITALS: BP 179/101
[2017-05-12] MEDS ORDERED: FURO40TA5 PO (16:36)
[2017-06-20] MEDS ORDERED: CLIN300C11 PO (14:35)
== END 2017-05-06 06:00 | disposition left against medical advice (07) ==
LOC: ER 01:32
DX: Z53.21 Procedure and treatment not carried out due to patient leaving prior to being seen by health care provider (principal); Z59.0 Homelessness

== ENCOUNTER 2017-05-07 01:27 | Emergency (ER) | payer MEDICAID ==
[2017-05-12] MEDS ORDERED: FURO40TA5 PO (16:36)
== END 2017-05-07 02:25 | disposition left against medical advice (07) ==
LOC: ER 01:27
DX: Z53.21 Procedure and treatment not carried out due to patient leaving prior to being seen by health care provider (principal)

== ENCOUNTER 2017-05-10 00:19 | Emergency (ER) | payer MEDICAID ==
[~2017-05-10] VITALS: Ht 172.7 cm; Wt 91.0 kg
[2017-05-10 01:48] VITALS: BP 194/104
[2017-05-12] MEDS ORDERED: FURO40TA5 PO (16:36)
== END 2017-05-10 06:05 | disposition left against medical advice (07) ==
LOC: ER 02:33
DX: R11.0 Nausea (principal); R10.9 Unspecified abdominal pain; Z53.21 Procedure and treatment not carried out due to patient leaving prior to being seen by health care provider

== ENCOUNTER 2017-05-11 00:33 | Emergency (ER) | payer MEDICAID ==
[~2017-05-11] VITALS: Ht 172.7 cm; Wt 91.0 kg
[2017-05-11 00:59] VITALS: BP 156/108
[2017-05-12] MEDS ORDERED: FURO40TA5 PO (16:36)
== END 2017-05-11 08:18 | disposition left against medical advice (07) ==
LOC: ER 00:33
DX: R11.0 Nausea (principal); R10.9 Unspecified abdominal pain; Z53.21 Procedure and treatment not carried out due to patient leaving prior to being seen by health care provider

== ENCOUNTER 2017-05-14 21:10 | Emergency (ER) | payer MEDICAID ==
[~2017-05-14 21:10] MED LIST: FURO40TA5 PO
[2017-05-15] MEDS ORDERED: CLONIDINE 0.1MG TABLET PO ONE (00:15)
[2017-05-15 03:15] VITALS: BP 155/113
== END 2017-05-15 03:29 | disposition home or self-care (01) ==
LOC: ER 21:10
DX: Z76.0 Encounter for issue of repeat prescription (principal); I11.0 Hypertensive heart disease with heart failure; I50.9 Heart failure, unspecified; F17.200 Nicotine dependence, unspecified, uncomplicated; F14.10 Cocaine abuse, uncomplicated; F15.10 Other stimulant abuse, uncomplicated
CPT/HCPCS: 99283; Z7610

== ENCOUNTER 2017-05-16 01:02 | Emergency (ER) | payer MEDICAID ==
[~2017-05-16] VITALS: Ht 172.7 cm; Wt 91.0 kg
[2017-05-16 01:13] VITALS: BP 163/100
== END 2017-05-16 04:40 | disposition left against medical advice (07) ==
LOC: ER 01:02
DX: Z53.21 Procedure and treatment not carried out due to patient leaving prior to being seen by health care provider (principal)

== ENCOUNTER 2017-05-19 02:31 | Emergency (ER) | payer MEDICAID ==
[~2017-05-19] VITALS: Ht 172.7 cm; Wt 91.0 kg
[2017-05-19 03:07] VITALS: BP 171/105
[2017-06-20] MEDS ORDERED: CLIN300C11 PO (14:35)
== END 2017-05-19 08:16 | disposition left against medical advice (07) ==
LOC: ER 02:31
DX: Z53.21 Procedure and treatment not carried out due to patient leaving prior to being seen by health care provider (principal)

== ENCOUNTER 2017-05-21 00:14 | Emergency (ER) | payer MEDICAID ==
[~2017-05-21] VITALS: Ht 172.7 cm; Wt 90.9 kg
[2017-05-21 00:28] VITALS: BP 183/103
[2017-05-21] MEDS ORDERED: IBUPROFEN 800MG TABLET PO ONE (01:00)
[2017-05-21] MEDS ORDERED: KETOROLAC 60MG/2ML VIAL IM ONE (01:15)
[2017-06-20] MEDS ORDERED: CLIN300C11 PO (14:35)
== END 2017-05-21 01:47 | disposition home or self-care (01) ==
LOC: ER 00:14
DX: G89.29 Other chronic pain (principal); M25.512 Pain in left shoulder; M25.511 Pain in right shoulder; I10 Essential (primary) hypertension; F17.200 Nicotine dependence, unspecified, uncomplicated; Z59.0 Homelessness
CPT/HCPCS: 96372; 99283; J1885

== ENCOUNTER 2017-05-22 00:42 | Emergency (ER) | payer MEDICAID ==
[~2017-05-22] VITALS: Ht 172.7 cm; Wt 91.0 kg
[2017-05-22 00:58] VITALS: BP 177/88
[2017-05-22] MEDS ORDERED: ACETAMINOPHEN 325MG TABLET PO STA (04:07)
[2017-05-22 04:34] LABS: BASOPHILS % 0.6 % (0.0-2.0); EOSINOPHILS % 0.9 % (0.0-5.0); HEMOGLOBIN. 13.7 g/dL (14.0-18.0); LYMPHOCYTES % 19.5 % (20.0-50.0); MEAN CORPUSCULAR HEMOGLOBIN 31.4 pg (28.0-32.0); MEAN PLATELET VOLUME 9.8 fl (7.4-10.4); MONOCYTES % 8.8 % (2.0-8.0); NEUTROPHILS % 70.2 % (40.0-76.0); PLATELET 264 x1000/uL (130-400); RED BLOOD CELL COUNT 4.35 mill/uL (4.7-6.1); RED CELL DISTRIBUTION WIDTH 13.6 % (11.6-14.6)
[2017-05-22 04:45] LABS: CHLORIDE 105 mEq/L (98-107)
[2017-05-22 04:56] LABS: CLARITY URINE CLEAR (CLEAR); COLOR URINE YELLOW (YELLOW); KETONES URINE NEGATIVE (NEGATIVE); LEUKOCYTE ESTERASE URINE 1+ (NEGATIVE); NITRITE URINE NEGATIVE (NEGATIVE); OCCULT BLOOD URINE NEGATIVE (NEGATIVE); PH URINE 7.5 (4.5-8.0); PROTEIN URINE NEGATIVE (NEGATIVE); SPECIFIC GRAVITY URINE 1.012 (1.005-1.030); UROBILINOGEN URINE 0.2 E.U./dL (0.2-1.0)
== END 2017-05-22 05:46 | disposition home or self-care (01) ==
LOC: ER 00:42
DX: N39.0 Urinary tract infection, site not specified (principal); R11.0 Nausea; I10 Essential (primary) hypertension; F17.200 Nicotine dependence, unspecified, uncomplicated; F14.10 Cocaine abuse, uncomplicated; Z98.890 Other specified postprocedural states
CPT/HCPCS: 36415; 80053; 81003; 83690; 85025; 99284

== ENCOUNTER 2017-05-23 22:34 | Emergency (ER) | payer MEDICAID ==
[~2017-05-23] VITALS: Ht 172.7 cm; Wt 91.0 kg
[2017-05-23 23:53] VITALS: BP 173/65
[2017-05-24] MEDS ORDERED: ONDANSETRON 4MG ODT PO ONE (00:15)
[2017-06-20] MEDS ORDERED: CLIN300C11 PO (14:35)
== END 2017-05-24 00:41 | disposition home or self-care (01) ==
LOC: ER 22:34
DX: R11.0 Nausea (principal); I10 Essential (primary) hypertension; F14.10 Cocaine abuse, uncomplicated; F17.200 Nicotine dependence, unspecified, uncomplicated; Z90.49 Acquired absence of other specified parts of digestive tract; Z98.890 Other specified postprocedural states; Z59.0 Homelessness
CPT/HCPCS: 99282; Q0162

== ENCOUNTER 2017-05-25 00:33 | Emergency (ER) | payer MEDICAID ==
[~2017-05-25] VITALS: Ht 172.7 cm; Wt 91.0 kg
[2017-05-25] MEDS ORDERED: KETOROLAC 60MG/2ML VIAL IM ONE (02:00)
[2017-05-25 02:39] VITALS: BP 155/75
[2017-06-20] MEDS ORDERED: CLIN300C11 PO (14:35)
== END 2017-05-25 02:39 | disposition home or self-care (01) ==
LOC: ER 00:33
DX: M54.5 Low back pain (principal); I10 Essential (primary) hypertension; F15.10 Other stimulant abuse, uncomplicated; F14.10 Cocaine abuse, uncomplicated; F17.200 Nicotine dependence, unspecified, uncomplicated; W01.0XXA Fall on same level from slipping, tripping and stumbling without subsequent striking against object, initial encounter; Y93.89 Activity, other specified; Y99.8 Other external cause status; Y92.89 Other specified places as the place of occurrence of the external cause; Z90.49 Acquired absence of other specified parts of digestive tract; Z59.0 Homelessness
CPT/HCPCS: 96372; 99283; J1885

== ENCOUNTER 2017-05-26 04:15 | Emergency (ER) | payer MEDICAID ==
[~2017-05-26] VITALS: Ht 172.7 cm; Wt 88.0 kg
[2017-05-26 06:20] VITALS: BP 131/81
== END 2017-05-26 07:03 | disposition home or self-care (01) ==
LOC: ER 04:15
DX: I10 Essential (primary) hypertension (principal); F12.10 Cannabis abuse, uncomplicated; F17.200 Nicotine dependence, unspecified, uncomplicated
CPT/HCPCS: 99281

== ENCOUNTER 2017-05-27 02:41 | Emergency (ER) | payer MEDICAID ==
[~2017-05-27] VITALS: Ht 172.7 cm; Wt 91.0 kg
[2017-05-27 03:27] VITALS: BP 156/83
== END 2017-05-27 07:41 | disposition left against medical advice (07) ==
LOC: ER 02:41
DX: Z53.21 Procedure and treatment not carried out due to patient leaving prior to being seen by health care provider (principal); I10 Essential (primary) hypertension; F17.210 Nicotine dependence, cigarettes, uncomplicated

== ENCOUNTER 2017-05-30 23:58 | Emergency (ER) | payer MEDICAID ==
[~2017-05-30] VITALS: Ht 172.7 cm; Wt 91.0 kg
[2017-05-31] MEDS ORDERED: KETOROLAC 60MG/2ML VIAL IM ONE (06:45)
[2017-05-31 06:52] VITALS: BP 160/90
[2017-06-20] MEDS ORDERED: CLIN300C11 PO (14:35)
== END 2017-05-31 07:24 | disposition home or self-care (01) ==
LOC: ER 23:58
DX: M25.511 Pain in right shoulder (principal); M25.512 Pain in left shoulder; G89.29 Other chronic pain; I11.0 Hypertensive heart disease with heart failure; I50.9 Heart failure, unspecified; F14.10 Cocaine abuse, uncomplicated; F17.200 Nicotine dependence, unspecified, uncomplicated; Z87.440 Personal history of urinary (tract) infections; Z98.890 Other specified postprocedural states; Z90.49 Acquired absence of other specified parts of digestive tract; Z59.0 Homelessness
CPT/HCPCS: 96372; 99283; J1885

== ENCOUNTER 2017-06-03 01:42 | Emergency (ER) | payer MEDICAID ==
[~2017-06-03] VITALS: Ht 172.7 cm; Wt 91.0 kg
[2017-06-03 02:12] VITALS: BP 186/109
== END 2017-06-03 09:27 | disposition left against medical advice (07) ==
LOC: ER 01:58
DX: Z53.21 Procedure and treatment not carried out due to patient leaving prior to being seen by health care provider (principal)

== ENCOUNTER 2017-06-04 21:39 | Emergency (ER) | payer MEDICAID ==
[~2017-06-04] VITALS: Ht 172.7 cm; Wt 91.0 kg
[2017-06-04 22:00] VITALS: BP 181/91
== END 2017-06-05 08:13 | disposition left against medical advice (07) ==
LOC: ER 21:39
DX: M25.512 Pain in left shoulder (principal); M25.511 Pain in right shoulder; Z53.21 Procedure and treatment not carried out due to patient leaving prior to being seen by health care provider

== ENCOUNTER 2017-06-05 22:21 | Emergency (ER) | payer MEDICAID ==
[~2017-06-05] VITALS: Ht 172.7 cm; Wt 91.0 kg
[2017-06-06] MEDS ORDERED: LIDOCAINE HCL 4% CREAM 76GM TUBE TP ONE (04:00)
[2017-06-06] MEDS ORDERED: KETOROLAC 60MG/2ML VIAL IM ONE (04:00)
[2017-06-06 05:20] VITALS: BP 179/99
[2017-06-20] MEDS ORDERED: CLIN300C11 PO (14:35)
== END 2017-06-06 05:25 | disposition home or self-care (01) ==
LOC: ER 22:21
DX: M25.511 Pain in right shoulder (principal); M25.512 Pain in left shoulder; I10 Essential (primary) hypertension; F17.200 Nicotine dependence, unspecified, uncomplicated; F14.10 Cocaine abuse, uncomplicated; Z59.0 Homelessness
CPT/HCPCS: 96372; 99283; J1885

== ENCOUNTER 2017-06-08 00:44 | Emergency (ER) | payer MEDICAID ==
[~2017-06-08] VITALS: Ht 172.7 cm; Wt 91.0 kg
[2017-06-08 03:56] VITALS: BP 134/86
[2017-06-20] MEDS ORDERED: CLIN300C11 PO (14:35)
== END 2017-06-08 07:05 | disposition left against medical advice (07) ==
LOC: ER 00:44
DX: Z53.21 Procedure and treatment not carried out due to patient leaving prior to being seen by health care provider (principal)

== ENCOUNTER 2017-06-08 22:26 | Emergency (ER) | payer MEDICAID ==
[~2017-06-08] VITALS: Ht 172.7 cm; Wt 91.0 kg
[2017-06-09 00:31] VITALS: BP 202/124
== END 2017-06-09 09:27 | disposition left against medical advice (07) ==
LOC: ER 06-09 01:28
DX: Z53.21 Procedure and treatment not carried out due to patient leaving prior to being seen by health care provider (principal)

== ENCOUNTER 2017-06-09 21:31 | Emergency (ER) | payer MEDICAID ==
[~2017-06-09] VITALS: Ht 172.7 cm; Wt 91.0 kg
[2017-06-09 23:20] VITALS: BP 153/101
== END 2017-06-10 08:13 | disposition left against medical advice (07) ==
LOC: ER 21:31
DX: I10 Essential (primary) hypertension (principal); Z76.0 Encounter for issue of repeat prescription; Z53.21 Procedure and treatment not carried out due to patient leaving prior to being seen by health care provider

== ENCOUNTER 2017-06-10 22:33 | Emergency (ER) | payer MEDICAID ==
[~2017-06-10] VITALS: Ht 172.7 cm; Wt 91.0 kg
[2017-06-11 01:39] VITALS: BP 165/89
[2017-06-11] MEDS ORDERED: KETOROLAC 60MG/2ML VIAL IM ONE (03:15)
== END 2017-06-11 04:56 | disposition home or self-care (01) ==
LOC: ER 22:33
DX: G89.29 Other chronic pain (principal); M25.511 Pain in right shoulder; M25.512 Pain in left shoulder; I10 Essential (primary) hypertension
CPT/HCPCS: 96372; 99283; J1885

== ENCOUNTER 2017-06-12 22:17 | Emergency (ER) | payer MEDICAID ==
[~2017-06-12] VITALS: Ht 172.7 cm; Wt 91.0 kg
[2017-06-13] MEDS ORDERED: KETOROLAC 60MG/2ML VIAL IM ONE (01:00)
[2017-06-13 01:23] VITALS: BP 146/71
[2017-06-20] MEDS ORDERED: CLIN300C11 PO (14:35)
== END 2017-06-13 01:23 | disposition home or self-care (01) ==
LOC: ER 22:17
DX: M79.605 Pain in left leg (principal); I11.0 Hypertensive heart disease with heart failure; I50.9 Heart failure, unspecified; F17.200 Nicotine dependence, unspecified, uncomplicated; F12.10 Cannabis abuse, uncomplicated; F14.10 Cocaine abuse, uncomplicated; Z87.440 Personal history of urinary (tract) infections; Z59.0 Homelessness
CPT/HCPCS: 96372; 99283; J1885

== ENCOUNTER 2017-06-13 19:05 | Emergency (ER) | payer MEDICAID ==
[~2017-06-13] VITALS: Ht 172.7 cm; Wt 91.0 kg
[2017-06-13 19:09] VITALS: BP 131/94
[2017-06-13] MEDS ORDERED: SODIUM CHLORIDE 0.9% 1000ML BAG (SEPSIS BOLUS) IV ONE (19:15)
[2017-06-13] MEDS ORDERED: ACETAMINOPHEN 325MG TABLET PO ONE (19:30)
[2017-06-13 20:16] LABS: HEMATOCRIT. 38.7 % (42.0-52.0); MEAN CORPUSCULAR HEMOGLOBIN 31.1 pg (28.0-32.0); MEAN CORPUSCULAR VOLUME 92.4 fL (80.0-94.0); MEAN PLATELET VOLUME 9.7 fl (7.4-10.4); PLATELET 278 x1000/uL (130-400); RED BLOOD CELL COUNT 4.18 mill/uL (4.7-6.1); RED CELL DISTRIBUTION WIDTH 14.3 % (11.6-14.6)
[2017-06-13 20:18] LABS: CHLORIDE 101 mEq/L (98-107)
[2017-06-13 20:21] LABS: INR 1.1; PROTHROMBIN TIME 11.3 sec (9.4-11.6)
[2017-06-13 20:52] LABS: PLATELET ESTIMATE NORMAL
[2017-06-20] MEDS ORDERED: CLIN300C11 PO (14:35)
== END 2017-06-14 02:00 | disposition left against medical advice (07) ==
LOC: ER 21:12
DX: M25.571 Pain in right ankle and joints of right foot (principal); I11.0 Hypertensive heart disease with heart failure; I50.9 Heart failure, unspecified; F14.10 Cocaine abuse, uncomplicated; F12.10 Cannabis abuse, uncomplicated; Z87.440 Personal history of urinary (tract) infections; Z59.0 Homelessness
CPT/HCPCS: 36415; 80053; 83605; 85025; 85610; 87040; 99284; J7030

== ENCOUNTER 2017-09-10 00:21 | Emergency (ER) | payer MEDICAID ==
[~2017-09-10] VITALS: Ht 170.2 cm; Wt 87.0 kg
[~2017-09-10 00:21] MED LIST changes: +CLIN300C11 PO
[2017-09-10 06:15] VITALS: BP 151/93
== END 2017-09-10 07:18 | disposition left against medical advice (07) ==
LOC: ER 00:21
DX: M25.511 Pain in right shoulder (principal); M25.512 Pain in left shoulder; Z53.21 Procedure and treatment not carried out due to patient leaving prior to being seen by health care provider

== ENCOUNTER 2017-09-11 02:05 | Emergency (ER) | payer MEDICAID ==
[~2017-09-11] VITALS: Ht 172.7 cm; Wt 87.0 kg
[2017-09-11] MEDS ORDERED: KETOROLAC 30MG/ML VIAL IM ONE (06:45)
[2017-09-11 06:52] VITALS: BP 150/100
== END 2017-09-11 06:51 | disposition home or self-care (01) ==
LOC: ER 06:36
DX: M25.519 Pain in unspecified shoulder (principal); G89.29 Other chronic pain; H54.62 Unqualified visual loss, left eye, normal vision right eye; F17.200 Nicotine dependence, unspecified, uncomplicated
CPT/HCPCS: 99283; J1885; Z7610

== ENCOUNTER 2017-09-16 21:39 | Emergency (ER) | payer MEDICAID ==
[~2017-09-16] VITALS: Ht 172.7 cm; Wt 86.0 kg
[2017-09-16 22:11] VITALS: BP 169/99
== END 2017-09-17 03:30 | disposition left against medical advice (07) ==
LOC: ER 21:39
DX: M25.511 Pain in right shoulder (principal); M25.512 Pain in left shoulder; E11.9 Type 2 diabetes mellitus without complications; I10 Essential (primary) hypertension; F14.10 Cocaine abuse, uncomplicated; F17.200 Nicotine dependence, unspecified, uncomplicated; Z90.49 Acquired absence of other specified parts of digestive tract; Z53.21 Procedure and treatment not carried out due to patient leaving prior to being seen by health care provider

== ENCOUNTER 2017-09-17 23:14 | Emergency (ER) | payer MEDICAID ==
[~2017-09-17] VITALS: Ht 172.7 cm; Wt 86.0 kg
[2017-09-18 04:45] VITALS: BP 141/87
[2017-09-18] MEDS ORDERED: KETOROLAC 60MG/2ML VIAL IM ONE (04:45)
== END 2017-09-18 05:15 | disposition home or self-care (01) ==
LOC: ER 23:14
DX: E11.40 Type 2 diabetes mellitus with diabetic neuropathy, unspecified (principal); M25.512 Pain in left shoulder; M25.511 Pain in right shoulder; G89.29 Other chronic pain; I10 Essential (primary) hypertension; Z90.49 Acquired absence of other specified parts of digestive tract
CPT/HCPCS: 96372; 99283; J1885; Z7610

== ENCOUNTER 2017-09-19 22:20 | Emergency (ER) | payer MEDICAID ==
[~2017-09-19] VITALS: Ht 172.7 cm; Wt 84.0 kg
[2017-09-19 22:53] VITALS: BP 157/107
== END 2017-09-20 06:02 | disposition home or self-care (01) ==
LOC: ER 22:20
DX: M79.671 Pain in right foot (principal); E11.9 Type 2 diabetes mellitus without complications; I10 Essential (primary) hypertension; F17.200 Nicotine dependence, unspecified, uncomplicated; F14.10 Cocaine abuse, uncomplicated
CPT/HCPCS: 99281

== ENCOUNTER 2017-09-25 00:47 | Emergency (ER) | payer MEDICAID ==
[~2017-09-25] VITALS: Ht 172.7 cm; Wt 84.0 kg
[2017-09-25] MEDS ORDERED: KETOROLAC 30MG/ML VIAL IM ONE (06:30)
[2017-09-25 07:20] VITALS: BP 154/88
== END 2017-09-25 07:32 | disposition home or self-care (01) ==
LOC: ER 00:47
DX: M25.519 Pain in unspecified shoulder (principal); G89.29 Other chronic pain; E11.9 Type 2 diabetes mellitus without complications; I10 Essential (primary) hypertension; F17.200 Nicotine dependence, unspecified, uncomplicated; Z90.49 Acquired absence of other specified parts of digestive tract
CPT/HCPCS: 96372; 99283; J1885

== ENCOUNTER 2017-09-26 22:58 | Emergency (ER) | payer MEDICAID ==
[~2017-09-26] VITALS: Ht 172.7 cm; Wt 84.0 kg
[2017-09-27 05:35] VITALS: BP 148/72
== END 2017-09-27 | disposition left against medical advice (07) ==
LOC: ER 22:58
DX: E11.40 Type 2 diabetes mellitus with diabetic neuropathy, unspecified (principal); I11.9 Hypertensive heart disease without heart failure; I10 Essential (primary) hypertension; F17.200 Nicotine dependence, unspecified, uncomplicated; F14.10 Cocaine abuse, uncomplicated; E11.622 Type 2 diabetes mellitus with other skin ulcer; L98.499 Non-pressure chronic ulcer of skin of other sites with unspecified severity
CPT/HCPCS: 99283

== ENCOUNTER 2017-10-01 01:31 | Emergency (ER) | payer MEDICAID ==
[~2017-10-01] VITALS: Ht 172.7 cm; Wt 84.0 kg
[2017-10-01] MEDS ORDERED: KETOROLAC 30MG/ML VIAL IM ONE (06:15)
[2017-10-01 06:40] VITALS: BP 145/85
== END 2017-10-01 07:15 | disposition home or self-care (01) ==
LOC: ER 01:31
DX: G89.29 Other chronic pain (principal); E11.9 Type 2 diabetes mellitus without complications; I10 Essential (primary) hypertension; F17.200 Nicotine dependence, unspecified, uncomplicated; F15.10 Other stimulant abuse, uncomplicated; F14.10 Cocaine abuse, uncomplicated; M25.511 Pain in right shoulder; M25.512 Pain in left shoulder
CPT/HCPCS: 96372; 99283; J1885

== ENCOUNTER 2017-10-02 03:11 | Emergency (ER) | payer MEDICAID ==
[~2017-10-02] VITALS: Ht 177.8 cm; Wt 81.0 kg
[2017-10-02 03:19] VITALS: BP 142/88
== END 2017-10-02 06:59 | disposition home or self-care (01) ==
LOC: ER 03:11
DX: M25.571 Pain in right ankle and joints of right foot (principal); G89.29 Other chronic pain; M25.471 Effusion, right ankle
CPT/HCPCS: 99283

== ENCOUNTER 2017-10-02 16:44 | Emergency (ER) | payer MEDICAID ==
[~2017-10-02] VITALS: Ht 172.7 cm; Wt 86.0 kg
[2017-10-03 05:00] VITALS: BP 145/89
== END 2017-10-03 06:55 | disposition home or self-care (01) ==
LOC: ER 17:25
DX: M79.605 Pain in left leg (principal); M79.604 Pain in right leg; R60.9 Edema, unspecified; I10 Essential (primary) hypertension; E11.9 Type 2 diabetes mellitus without complications; F17.200 Nicotine dependence, unspecified, uncomplicated
CPT/HCPCS: 99283

== ENCOUNTER 2017-10-04 21:00 | Emergency (ER) | payer MEDICAID ==
[~2017-10-04] VITALS: Ht 172.7 cm; Wt 84.0 kg
[2017-10-05 00:51] VITALS: BP 152/101
== END 2017-10-05 02:48 | disposition left against medical advice (07) ==
LOC: ER 22:20
DX: Z53.21 Procedure and treatment not carried out due to patient leaving prior to being seen by health care provider (principal); E11.9 Type 2 diabetes mellitus without complications; H54.61 Unqualified visual loss, right eye, normal vision left eye; F17.200 Nicotine dependence, unspecified, uncomplicated; Z90.49 Acquired absence of other specified parts of digestive tract

== ENCOUNTER 2017-10-06 00:39 | Emergency (ER) | payer MEDICAID ==
[~2017-10-06] VITALS: Ht 172.7 cm; Wt 84.0 kg
[2017-10-06 01:12] VITALS: BP 173/113
== END 2017-10-06 07:33 | disposition left against medical advice (07) ==
LOC: ER 00:39
DX: L90.5 Scar conditions and fibrosis of skin (principal); Z53.21 Procedure and treatment not carried out due to patient leaving prior to being seen by health care provider

== ENCOUNTER 2017-10-07 23:04 | Emergency (ER) | payer MEDICAID ==
[~2017-10-07] VITALS: Ht 172.7 cm; Wt 84.0 kg
[2017-10-08] MEDS ORDERED: KETOROLAC 60MG/2ML VIAL IM ONE ×2 (05:00)
[2017-10-08 05:19] VITALS: BP 150/87
== END 2017-10-08 06:37 | disposition home or self-care (01) ==
LOC: ER 23:04
DX: G89.29 Other chronic pain (principal); M25.512 Pain in left shoulder; M25.511 Pain in right shoulder; E11.9 Type 2 diabetes mellitus without complications; I10 Essential (primary) hypertension; F17.200 Nicotine dependence, unspecified, uncomplicated
CPT/HCPCS: 82962; 96372; 99283; J1885; X7700

== ENCOUNTER 2017-10-08 23:16 | Emergency (ER) | payer MEDICAID ==
[~2017-10-08] VITALS: Ht 172.7 cm; Wt 84.0 kg
[2017-10-08 23:54] VITALS: BP 174/90
== END 2017-10-09 08:18 | disposition left against medical advice (07) ==
LOC: ER 23:16
DX: Z53.21 Procedure and treatment not carried out due to patient leaving prior to being seen by health care provider (principal); I10 Essential (primary) hypertension; F17.200 Nicotine dependence, unspecified, uncomplicated

== ENCOUNTER 2017-10-09 23:06 | Emergency (ER) | payer MEDICAID ==
[~2017-10-09] VITALS: Ht 167.6 cm; Wt 84.0 kg
[2017-10-10 00:06] VITALS: BP 170/90
== END 2017-10-10 06:26 | disposition left against medical advice (07) ==
LOC: ER 23:06
DX: Z53.21 Procedure and treatment not carried out due to patient leaving prior to being seen by health care provider (principal); I10 Essential (primary) hypertension; F17.200 Nicotine dependence, unspecified, uncomplicated

== ENCOUNTER 2017-10-11 13:23 | Inpatient (IN) | payer MEDICAID ==
[~2017-10-11] VITALS: Ht 172.7 cm; Wt 77.6 kg
[2017-10-11] MEDS ORDERED: TETANUS, DIPHTHERIA, PERTUSSIS VAC/PF 0.5ML (>7YR OLD) IM ONE (13:30)
[2017-10-11] MEDS ORDERED: LIDOCAINE HCL 1% 20ML VIAL (Pyxis) INJ MC ONE (13:30)
[2017-10-11] MEDS ORDERED: BACITRACIN ZINC OINT UDPKT TOP ONE (13:30)
[2017-10-11] MEDS ORDERED: LIDOCAINE HCL/PF 1% 10 MG/ML 5ML VIAL IJ SCH (14:15)
[2017-10-11] MEDS ORDERED: SODIUM CHLORIDE 0.9% 1,000 ML IV ONE (14:21)
[2017-10-11 15:56] LABS: BASOPHILS % 0.6 % (0.0-2.0); HEMATOCRIT. 38.9 % (42.0-52.0); HEMOGLOBIN. 12.9 g/dL (14.0-18.0); LYMPHOCYTES % 12.7 % (20.0-50.0); MEAN CORPUSCULAR VOLUME 93.8 fL (80.0-94.0); MEAN PLATELET VOLUME 9.5 fl (7.4-10.4); MONOCYTES % 4.3 % (2.0-8.0); NEUTROPHILS % 81.4 % (40.0-76.0); PLATELET 253 x1000/uL (130-400); RED BLOOD CELL COUNT 4.15 mill/uL (4.7-6.1); RED CELL DISTRIBUTION WIDTH 14.3 % (11.6-14.6)
[2017-10-11 16:25] LABS: CLARITY URINE CLEAR (CLEAR); COLOR URINE YELLOW (YELLOW); KETONES URINE NEGATIVE (NEGATIVE); LEUKOCYTE ESTERASE URINE 1+ (NEGATIVE); NITRITE URINE NEGATIVE (NEGATIVE); OCCULT BLOOD URINE NEGATIVE (NEGATIVE); PH URINE 5.5 (4.5-8.0); PROTEIN URINE NEGATIVE (NEGATIVE); SPECIFIC GRAVITY URINE 1.018 (1.005-1.030)
[2017-10-11 16:26] LABS: CHLORIDE 108 mEq/L (98-107)
[2017-10-11 16:28] LABS: CREATINE KINASE MB FRACTION 29.4 ng/mL (0.5-3.6)
[2017-10-11] MEDS ORDERED: ASPIRIN 325MG EC TABLET PO ONE (16:45)
[2017-10-11] MEDS ORDERED: CLONIDINE 0.2MG TABLET PO ONE (17:30)
[2017-10-11] MEDS ORDERED: CLONIDINE 0.1MG TABLET PO PRN (19:30)
[2017-10-11] MEDS ORDERED: DIPHENHYDRAMINE 50MG/ML VIAL IV PRN (19:30)
[2017-10-11] MEDS ORDERED: ONDANSETRON HCL 4MG/2ML VIAL IV PRN (19:30)
[2017-10-11] MEDS ORDERED: MAGNESIUM/ALUMINUM HYDROXIDE/SIMETHICONE 30ML UDC PO PRN (19:30)
[2017-10-11] MEDS ORDERED: ACETAMINOPHEN 325MG TABLET PO PRN (19:30)
[2017-10-11 20:00] VITALS: BP 176/106
[2017-10-11] MEDS: SODIUM CHLORIDE 0.9% INJ 3ML FLUSH IVF SCH (21:34)
[2017-10-11 21:43] VITALS: BP 176/106
[2017-10-12] VITALS: BP 164/89
[2017-10-12 01:46] LABS: *AMPHETAMINES SCREEN URINE PRESUMTIVE POSITIVE (NEGATIVE); *BARBITURATES SCREEN URINE NEGATIVE (NEGATIVE); *BENZODIAZEPINES SCREEN URINE NEGATIVE (NEGATIVE); *COCAINE SCREEN URINE NEGATIVE (NEGATIVE); METHADONE URINE SCREEN NEGATIVE (NEGATIVE); OPIATES URINE SCREEN NEGATIVE (NEGATIVE)
[2017-10-12 01:47] LABS: CANNABINOID URINE SCREEN NEGATIVE (NEGATIVE); PHENCYCLIDINE URINE SCREEN NEGATIVE (NEGATIVE)
[2017-10-12 04:00] VITALS: BP 144/80
[2017-10-12] MEDS: SODIUM CHLORIDE 0.9% INJ 3ML FLUSH IVF SCH (05:31)
[2017-10-12 08:00] VITALS: BP 125/75
[2017-10-12] MEDS ORDERED: POTASSIUM CHLORIDE 20MEQ TABLET SR PO SCH (09:00)
[2017-10-12] MEDS ORDERED: LOSARTAN POTASSIUM 25 MG TABLET PO SCH (09:00)
[2017-10-12] MEDS ORDERED: NIFEDIPINE XL 30MG TAB PO SCH (09:00)
[2017-10-12] MEDS ORDERED: FUROSEMIDE 40MG TABLET PO SCH (09:00)
== END 2017-10-12 10:00 | disposition left against medical advice (07) | DRG 364 ==
LOC: ER 15:23 → ENRESERV 15:30 → 5WST 17:20 → EDBEDREQ 17:25 → EDBEDREQTM 17:25 → CANBEDREQ 18:27
PROVIDERS: ADMIT Internal Medicine; ATTEND Internal Medicine
PROC: 0JQ10ZZ Repair Face Subcutaneous Tissue and Fascia, Open Approach (ICD-10-PCS; principal; 2017-10-11)
DX: S01.81XA Laceration without foreign body of other part of head, initial encounter (principal); G92 Toxic encephalopathy; G90.8 Other disorders of autonomic nervous system; I11.0 Hypertensive heart disease with heart failure; I50.9 Heart failure, unspecified; J44.9 Chronic obstructive pulmonary disease, unspecified; E11.9 Type 2 diabetes mellitus without complications; F17.200 Nicotine dependence, unspecified, uncomplicated; S01.21XA Laceration without foreign body of nose, initial encounter; W18.39XA Other fall on same level, initial encounter; T43.625A Adverse effect of amphetamines, initial encounter; Z59.0 Homelessness; Z90.49 Acquired absence of other specified parts of digestive tract; Z79.899 Other long term (current) drug therapy; Y93.89 Activity, other specified; Y92.89 Other specified places as the place of occurrence of the external cause; Y99.8 Other external cause status; Z53.21 Procedure and treatment not carried out due to patient leaving prior to being seen by health care provider; F15.10 Other stimulant abuse, uncomplicated
CPT/HCPCS: 12014; 36415; 70450; 70486; 71045; 80053; 80305; 81003; 82553; 84484; 85025; 90471; 90715; 93005; 96361; 99285; J3490; J7030

== ENCOUNTER 2017-10-14 02:29 | Emergency (ER) | payer MEDICAID ==
[~2017-10-14] VITALS: Ht 172.7 cm; Wt 84.0 kg
[2017-10-14] MEDS ORDERED: KETOROLAC 30MG/ML VIAL IM ONE (06:45)
[2017-10-14 07:45] VITALS: BP 148/80
== END 2017-10-14 07:56 | disposition home or self-care (01) ==
LOC: ER 05:42
DX: Z76.0 Encounter for issue of repeat prescription (principal); M79.2 Neuralgia and neuritis, unspecified; I11.0 Hypertensive heart disease with heart failure; I50.9 Heart failure, unspecified; E11.9 Type 2 diabetes mellitus without complications; F17.210 Nicotine dependence, cigarettes, uncomplicated
CPT/HCPCS: 96372; 99283; J1885

== ENCOUNTER 2017-10-17 22:41 | Emergency (ER) | payer MEDICAID ==
[~2017-10-17] VITALS: Ht 172.7 cm; Wt 83.0 kg
[2017-10-18 03:00] VITALS: BP 146/82
[2017-10-18] MEDS ORDERED: KETOROLAC 60MG/2ML VIAL IM ONE (03:00)
== END 2017-10-18 03:01 | disposition left against medical advice (07) ==
LOC: ER 10-18 01:12
DX: G89.4 Chronic pain syndrome (principal); M25.511 Pain in right shoulder; M25.512 Pain in left shoulder; F17.200 Nicotine dependence, unspecified, uncomplicated; E11.9 Type 2 diabetes mellitus without complications; Z90.49 Acquired absence of other specified parts of digestive tract; Z98.890 Other specified postprocedural states
CPT/HCPCS: 96372; 99283; J1885

== ENCOUNTER 2017-10-20 21:40 | Emergency (ER) | payer MEDICAID ==
[~2017-10-20] VITALS: Ht 172.7 cm; Wt 84.0 kg
[2017-10-21] MEDS ORDERED: KETOROLAC 30MG/ML VIAL IM ONE
[2017-10-21 00:05] VITALS: BP 152/88
== END 2017-10-21 00:27 | disposition home or self-care (01) ==
LOC: ER 21:40
DX: Z48.02 Encounter for removal of sutures (principal); G62.89 Other specified polyneuropathies; I10 Essential (primary) hypertension; E11.9 Type 2 diabetes mellitus without complications; F17.210 Nicotine dependence, cigarettes, uncomplicated; Z79.899 Other long term (current) drug therapy
CPT/HCPCS: 96372; 99283; J1885

== ENCOUNTER 2017-10-23 21:16 | Emergency (ER) | payer MEDICAID ==
[~2017-10-23] VITALS: Ht 172.7 cm; Wt 84.0 kg
[2017-10-23 22:10] VITALS: BP 154/103
== END 2017-10-24 05:00 | disposition left against medical advice (07) ==
LOC: ER 21:16
DX: M25.512 Pain in left shoulder (principal); M25.511 Pain in right shoulder; Z53.21 Procedure and treatment not carried out due to patient leaving prior to being seen by health care provider

== ENCOUNTER 2020-11-01 14:42 | Emergency (ER) | payer MEDICARE, MEDICAID ==
[~2020-11-01] VITALS: Ht 177.8 cm; Wt 85.0 kg
[~2020-11-01 14:42] MED LIST changes: -CLIN300C11 PO; +CLIN300C12 PO
[2020-11-01 16:14] LABS: BASOPHILS % 0.7 % (0.0-2.0); EOSINOPHILS % 1.3 % (0.0-5.0); HEMOGLOBIN. 11.9 g/dL (14.0-18.0); LYMPHOCYTES % 13.3 % (20.0-50.0); MEAN CORPUSCULAR HEMOGLOBIN 27.3 pg (28.0-32.0); MEAN PLATELET VOLUME 8.8 fl (7.4-10.4); MONOCYTES % 9.5 % (2.0-8.0); NEUTROPHILS % 75.2 % (40.0-76.0); PLATELET 396 x1000/uL (130-400); RED BLOOD CELL COUNT 4.35 mill/uL (4.7-6.1); RED CELL DISTRIBUTION WIDTH 16.6 % (11.6-14.6)
[2020-11-01 16:22] LABS: CHLORIDE 104 mEq/L (98-107)
[2020-11-01 17:32] LABS: PROTHROMBIN TIME 10.9 sec (9.6-11.0)
[2020-11-01] MEDS ORDERED: DOXYCYCLINE HYCLATE 100MG CAPSULE PO ONE (18:30)
[2020-11-01] MEDS ORDERED: DOXY75TA MT (19:01)
[2020-11-02 08:57] VITALS: BP 170/85
== END 2020-11-02 08:58 | disposition home or self-care (01) ==
LOC: ER 15:30
DX: L03.115 Cellulitis of right lower limb (principal); D64.9 Anemia, unspecified; F17.210 Nicotine dependence, cigarettes, uncomplicated; E11.9 Type 2 diabetes mellitus without complications; I10 Essential (primary) hypertension; J44.9 Chronic obstructive pulmonary disease, unspecified
CPT/HCPCS: 36415; 80053; 85025; 86140; 93971; 99284